=== PATIENT | male | born 2000 | race Caucasian/White ===

== ENCOUNTER 2019-10-04 20:11 | Emergency (ER) | payer OTHER, SELFPAY ==
[2019-10-04 20:12] VITALS: BP 154/58; PULSE 125; RESP 28; TEMP 37.2; O2SAT 98
[2019-10-04 20:13] VITALS: BP 154/58; PULSE 125; RESP 30; TEMP 37.2; O2SAT 99; BMI 39.2
--- NOTE | 2019-10-04 20:17 | CT_ITS ---
STUDY: CT BRAIN WITHOUT CONTRAST REASON FOR EXAM: Male, 19 years old. Seizures RADIATION DOSAGE (If Supplied By Facility): CTDIvol = ( 44.99 ) mGy, DLP = ( 812.98 ) mGycm TECHNIQUE: Transaxial CT imaging of the brain was performed without administration of intravenous contrast material. Individualized dose optimization techniques were used for this CT. COMPARISON: No relevant priors. FINDINGS: Normal soft tissue structures. Normal calvarium. Normal size ventricles and extra-axial spaces for the patient''s age. Normal white matter tracts of the cerebral hemispheres. Normal basal ganglia and thalami. Normal brainstem. Normal cerebellum. There is no intracranial hemorrhage. There are no findings of an acute ischemic infarction. Mucous retention cyst in right maxillary sinus CT/Brain/Head without Contrast IMPRESSION: Normal unenhanced CT scan of the brain. Right maxillary sinus disease Electronically Signed: Alexis Paige MD at 20:51 EST , Service support ,
--- NOTE | 2019-10-04 20:18 | ED.DCSUM_ITS ---
History of Present Illness Chief Complaint: Seizure Informant: Patient Onset: Today Context: Sudden Onset Current Severity: Mild Maximum Severity: Severe Narrative: The patient presents to the emergency department after having a witnessed seizure. The patient was in his normal state of health. Mom states that sometimes, when he wakes up, he will have some slight jerking when he comes of sleep. She states is just quick and only last 2 seconds of his upper extremities. He never has loss of consciousness. She states today, he did it again. They sat him in a chair, and then he had a generalized tonic-clonic seizure that lasted approximately 5 minutes. He did bite his tongue. He was postictal. He does not think he is ever had a full-blown seizure in the past. He is not currently on any medication. He denies any substance abuse. Prior similar symptoms: No Recent Illness/Hospitalization: No Past Medical History - Allergies and Home Meds Allergies/Adverse Reactions: Allergies No Known Allergies Allergy (Verified 05/15/15 22:39) Primary Care Physician: Joseph Bailey MD [STAFF PHYSICIAN] - Prior records reviewed: Yes Past Medical History: - - ADHD Surgical History: noncontributory Smoking Status: Never smoker Review of Systems General: Denies: Chills, Fever, Sweats Eyes: Denies: Visual changes - bilaterally, Diplopia ENT: Denies: Rhinorrhea, Sore throat Cardiovascular: Denies: Chest pain, Palpitations Respiratory: Denies: Dyspnea, Cough, Dyspnea on exertion Gastrointestinal: Denies: Abdominal pain, Nausea, Vomiting, Diarrhea, Melena, Hematochezia Genitourinary: Denies: Dysuria, Hematuria, Frequency Musculoskeletal: Denies: Back pain, Extremity Pain Skin: Denies: Rash, Wounds Neurological: Denies: Headache, Weakness, Numbness Physical Exam Vital Signs/Narrative: Vital Signs Temp Pulse Resp BP Pulse Ox 10/04/19 20:13 99.0 F 125 H 30 H 154/58 H 99 10/04/19 20:12 99.0 F 125 H 28 H 154/58 H 98 Inital Vital Signs reviewed: Yes General: Well nourished, Well developed, No Acute Distress Head: Normocephalic, Atraumatic Eyes: Perrl, EOMI ENT: Moist mucous membranes, No rhinorrhea Neck: Supple, Nontender Cardiovascular: Regular rate, Regular rhythm, No murmurs Respiratory: No distress, CTA bilaterally, Chest nontender Abdomen: Soft, Nontender, Nondistended, Normal bowel sounds Back: Nontender, Normal Inspection Extremities: Nontender, No edema Skin: Normal color, No rash Neurological: Alert, Oriented x3, Cranial nerves II-XII grossly intact, Normal Strength, Normal Sensation Psychological: Normal affect, Normal Mood Diagnostic/Tx/Re-eval Clinical Impression(s) from Imaging Studies Brain CT 10/04/19 20:17 IMPRESSION: Normal unenhanced CT scan of the brain. Right maxillary sinus disease Electronically Signed: Alexis Paige MD at 20:51 EST , Service support , Abnormal Lab Results 10/04/19 10/04/19 10/04/19 20:23 20:23 21:49 WBC 12.3 H RBC 5.36 Hgb 15.3 Hct 46.1 MCV 86.0 MCH 28.5 MCHC 33.2 RDW Std Deviation 37.8 RDW Coeff of Terry 12.1 Plt Count 403 MPV 10.1 Immature Gran % (Auto) 2.400 H Neut % (Auto) 53.8 Lymph % (Auto) 33.2 [place] % (Auto) 7.8 Eos % (Auto) 2.4 Baso % (Auto) 0.4 Absolute Neuts (auto) 6.6 Absolute Lymphs (auto) 4.07 Nucleated RBC % 0 Sodium 139 Potassium 3.6 Chloride 101 Carbon Dioxide 23.0 Anion Gap 15 BUN 11 Creatinine 1.19 Estim Creat Clear Calc 101.39 Est GFR (MDRD) Af Amer 99 Est GFR (MDRD) Non-Af 82 BUN/Creatinine Ratio 9.2 L Glucose 145 H Calcium 9.4 Total Bilirubin 0.30 AST 17 ALT 28 Alkaline Phosphatase 78 Total Protein 8.2 Albumin 3.8 Globulin 4.4 H Albumin/Globulin Ratio 0.9 Ur Drug Screen Comment - Medical Decision Making The patient presents to the emergency department after witnessed seizure. He did have tongue biting. He does have myoclonic jerks when he wakes from sleep, but has never had a full seizure. He states he has had difficult time sleeping as he is supposed to start a new job tomorrow. He is currently back to baseline. Metabolic work-up was pursued and is unremarkable. Noncontrast head CT was unremarkable. I do have some concern that the patient may have a seizure focus for the myoclonic jerking in his history. I do feel that it would be more prudent to cover him with antiepileptics to keep him from seizing while he can follow-up as an outpatient. The family is agreeable with this plan of care. He is been observed for 2 hours now with no recurrence of his seizure activity. At this point, I do feel that he is safe for outpatient follow-up. Impression 1. New onset seizure ED Disposition - Plan for ED Patient: Instructions: SEIZURE, New Onset, Unk Cause [Adult] Prescriptions: Levetiracetam [Keppra] 500 mg PO BID #60 tab Prescription Printed Referrals: Joseph Bailey MD [STAFF PHYSICIAN] - 2 Days
[2019-10-04] MEDS: 0.9% Normal Saline 1,000 ML 1000 ML IV (20:28)
[2019-10-04 20:34] LABS: Absolute Lymphocyte Count 4.07 X10^3/uL (0.83-4.51); Absolute Neutrophil Count 6.6 X10^3/uL (2.0-7.7); Basophil# 0.05 X10^3/uL; Basophil% 0.4 % (0-1); Eosinophils% 2.4 % (0-5); Hematocrit 46.1 % (40-54); Hemoglobin 15.3 g/dL (13.0-16.5); Lymphocyte # 4.07 X10^3/ul (4.0); Lymphocyte % 33.2 % (19-41); Mean Corp Hgb Conc 33.2 g/dL (32-36); Mean Corpuscular Hgb 28.5 pg (27.0-32.0); Mean Platelet Vol. 10.1 fl (6.2-12.0); Monocyte# 0.95 X10^3/uL; Monocyte% 7.8 % (0-10); NRBC Flagged by Analyzer 0 % (0-5); Neutrophil # 6.58 X10^3/uL (2.7-7.7); Neutrophil % 53.8 % (47-70); Platelet Count 403 K/mm3 (150-450); RBC Distribution Width CV 12.1 % (11.6-14.6); RBC Distribution Width SD 37.8 fl (35.1-43.9); Red Blood Count 5.36 M/mm3 (4.6-6.2); White Blood Count 12.3 K/mm3 (4.4-11.0)
[2019-10-04 21:06] LABS: ALB/GLOB Ratio 0.9 RATIO (0.9-2.4); AST(SGOT) 17 U/L (15-37); Alanine Aminotransfer ALT/SGPT 28 U/L (16-61); Albumin, Serum 3.8 g/dL (3.2-5.0); Alkaline Phosphatase 78 U/L (45-117); Anion Gap 15 (5-15); BUN 11 mg/dL (7-18); BUN/Creat Ratio 9.2 RATIO (10-20); Calcium,Total 9.4 mg/dL (8.5-10.1); Chloride 101 mmol/L (98-107); Creatinine, Serum 1.19 mg/dL (0.70-1.30); EST Glomerular Filtration Rate 82 mL/min (>60); Est Glom Filt Rate - Afr Amer 99 mL/min (>60); Estimated Creatinine Clearance 101.39 ml/min; Globulin 4.4 g/dL (2.2-4.2); Glucose 145 mg/dL (74-106); Potassium 3.6 mmol/L (3.5-5.1); Protein, Total 8.2 g/dL (6.4-8.2); Sodium Level 139 mmol/L (136-145)
[2019-10-04 21:54] LABS: Bacteria 0 SEEN /hpf (None Seen); Mucous, Urine 0 SEEN /hpf (<or=2+); Red Blood Cells-Urine 0 SEEN /hpf (0-5); Squamous Epithelial Cells - UA 0 SEEN /hpf (0-5); White Blood Cells 0 SEEN /hpf (0-5)
[2019-10-04 21:58] LABS: Color, Urine Yellow (Yellow); Glucose, Dipstick Normal (Normal); Ketone-Dipstick 5 mg/dl (Negative); Leukocyte Esterase-Dipstick Negative /ul (Negative); Nitrite-Dipstick Negative (Negative); Occult Blood-Urine 10 /ul (Negative); Protein-Dipstick 15 mg/dl (Negative); Specific Gravity, Urine 1.025 (1.002-1.030); Urine Bilirubin Dipstick Negative (Negative); Urine Clarity Clear (Clear); Urine Urobilinogen Normal (Normal)
[2019-10-04] MEDS: levETIRAcetam IV 1,000 MG/100 ML BAG 400 MG IV (22:16)
[2019-10-04 22:22] VITALS: BP 125/68; PULSE 105; RESP 18; O2SAT 96
[2019-10-04 22:23] LABS: Hyaline Cast 0-5 SEEN /lpf (0-5)
[2019-10-04 22:40] VITALS: BP 119/82; PULSE 105; RESP 18; O2SAT 98
[2019-10-04 22:43] LABS: Amphetamine Urine VISTA NEGATIVE (<1000 ng/mL); Barbiturate Urine VISTA NEGATIVE (< 200 ng/mL); Benzodiazepine Urine VISTA NEGATIVE (< 200 ng/mL); Cocaine Urine VISTA NEGATIVE (< 300 ng/mL); Ecstacy Urine VISTA NEGATIVE (< 500 ng/mL); Methadone Urine VISTA NEGATIVE (< 300 ng/mL); PCP Urine VISTA NEGATIVE (< 25 ng/mL); THC Urine VISTA NEGATIVE (< 50 ng/mL); Vista UDS pH Range 5
== END 2019-10-04 22:41 | disposition home or self-care (01) ==
PROVIDERS: Emergency Provider Emergency Medicine; Family Provider Family Medicine; PCP Family Medicine
DX: G40.909 Epilepsy, unspecified, not intractable, without status epilepticus (principal); J32.0 Chronic maxillary sinusitis; F90.9 Attention-deficit hyperactivity disorder, unspecified type
CPT/HCPCS: 70450; 80053; 80307; 81001; 85025; 96361; 96365; 96366; 99285; J7030; J7050; A4216

== ENCOUNTER 2021-11-15 10:14 | Emergency (ER) | payer OTHER, SELFPAY ==
[2021-11-15 10:18] VITALS: BP 160/74; PULSE 129; RESP 19; TEMP 36.8; O2SAT 94; BMI 38.0
--- NOTE | 2021-11-15 10:24 | CT_ITS ---
STUDY: CT BRAIN WITHOUT CONTRAST REASON FOR EXAM: Male, 21 years old. Seizure RADIATION DOSAGE (If Supplied By Facility): CTDIvol = ( 44.99 ) mGy, DLP = ( 779.24 ) mGycm TECHNIQUE: Transaxial CT imaging of the brain was performed without administration of intravenous contrast material. Individualized dose optimization techniques were used for this CT. COMPARISON: Comparison is made with prior study dated 10/04/2019. FINDINGS: Normal soft tissue structures. Normal calvarium. Normal size ventricles and extra-axial spaces for the patient''s age. Normal white matter tracts of the cerebral hemispheres. Normal basal ganglia and thalami. Normal brainstem. Normal cerebellum. There is no intracranial hemorrhage. There are no findings of an acute ischemic infarction. There is a 1.8 cm polyp or retention cyst at the base of the right maxillary sinus. CT/Brain/Head without Contrast IMPRESSION: No acute abnormality is seen. Stable right maxillary polyp or retention cyst. Electronically Signed: Elijah Kilpatrick MD at 11:19 EST , Service support ,
--- NOTE | 2021-11-15 10:26 | EDS_ITS ---
HPI History of Present Illness Chief Complaint: Seizure Informant: patient and EMS Onset/Context/Timing Onset: Today Context: Sudden Onset Timing: Lasts (Approximately 10 minutes) Quality: Tonic-clonic Location: Generalized Worsened by: Nothing Relieved by: Nothing Narrative Narrative: Patient notes with a seizure that occurred today. Patient states he has a history of seizures. Patient states that he takes Keppra for his seizures. Patient does not remember any events around the seizure. EMS reports that the family who witnessed the seizure states that it lasted approximately 10 minutes. They report that it was generalized tonic-clonic seizure. Patient states he bit his tongue. Patient denies any incontinence of urine or stool. EMS reports that the patient was somewhat anxious when he started to come out of his postictal state. Prior similar symptoms: Yes PFSH PFSH Medical History (Updated 11/15/21 @ 11:[address] Greyson Farley DO) Seizures Home Medications levetiracetam 500 mg PO BID #60 tab 10/04/19 [Rx Last Taken Unknown] Allergy/AdvReac Type Severity Reaction Status Date / Time tree nuts Allergy Mild Other Uncoded 11/15/21 10:15 Surgical History (Updated 11/15/21 @ 10:[address] Greyson Farley DO) Hx of tympanostomy tubes Surgical History no surgical history Social History Smoking Status: Never smoker ROS ROS ED Constitutional Constitutional ED: Denies chills or fever(s) Eyes Eyes: Denies blurry vision or change in vision ENT ENT ED: Denies rhinorrhea or sore throat Cardiovascular Cardiovascular: Denies chest pain or palpitations Respiratory/Chest Respiratory/Chest: Denies cough or dyspnea Gastrointestinal Gastrointestinal: Denies nausea or vomiting Genitourinary Genitourinary ED: Denies dysuria or hematuria Musculoskeletal Musculoskeletal: Denies back pain or neck pain Integumentary Denies abscess or rash Neurologic Neurologic: Denies headache(s) or weakness Allergic/Immunologic Allergic/Immunologic ED: Denies mouth swelling or urticaria EXAM Physical Exam Const Vital Signs: 11/15/21 10:18 Temperature 98.2 F Temperature Source Oral Pulse Rate 129 H Respiratory Rate 19 H Blood Pressure 160/74 H Blood Pressure Mean 102 Pulse Ox 94 Oxygen Delivery Method Room Air Positive well nourished and well developed General Appearance ED: well developed HEENT Reports moist mucous membranes Neck supple and no JVD Resp normal respiratory effort and clear to auscultation bilaterally Cardio regular rate, regular rhythm and no murmurs GI normal to inspection, nondistended, normoactive bowel sounds and non-tender Palpation: soft Extremity normal to inspection General Extremety ED: Negative for edema or tenderness General Extremity: Negative for edema Neuro oriented x3, CN's II-XII intact bilaterally and no sensory deficits noted Sensorium / Orientation: alert Motor Exam: strength 5/5 throughout Psych mental status grossly normal Skin no rashes or lesions noted MDM MDM MDM Narrative Medical decision making narrative: Patient was placed on continuous cardiac and pulse oximeter monitors. CT scan of the brain was obtained. There is no acute intracranial abnormality. This was interpreted by the radiologist and reviewed by myself. CBC and comprehensive metabolic profile were obtained and were within normal limits. Patient had no further seizure activity here in the emergency department. Patient was advised of his findings. Patient was instructed to follow-up with his primary care physician in 3 to 5 days. Patient was instructed to continue his Keppra as prescribed. Patient understood and was agreeable with the plan. All questions were answered. Lab Data Attestation: I reviewed the patient's lab results. Labs: Laboratory Results - last 24 hr 11/15/21 11/15/21 10:30 10:30 WBC 8.2 RBC 5.46 Hgb 15.7 Hct 44.6 MCV 81.7 MCH 28.8 MCHC 35.2 RDW Std Deviation 36.3 RDW Coeff of Terry 12.2 Plt Count 386 MPV 10.3 Immature Gran % (Auto) 0.500 Neut % (Auto) 62.6 Lymph % (Auto) 28.4 [place] % (Auto) 7.4 Eos % (Auto) 0.6 Baso % (Auto) 0.5 Absolute Neuts (auto) 5.1 Absolute Lymphs (auto) 2.33 Nucleated RBC % 0 Sodium 135 L Potassium 4.2 Chloride 102 Carbon Dioxide 23.0 Anion Gap 10 BUN 14 Creatinine 1.19 Estim Creat Clear Calc 96.54 Est GFR (MDRD) Af Amer 97 Est GFR (MDRD) Non-Af 80 BUN/Creatinine Ratio 11.8 Glucose 153 H Calcium 9.6 Total Bilirubin 0.40 AST 17 ALT 25 Alkaline Phosphatase 71 Total Protein 8.2 Albumin 3.8 Globulin 4.4 H Albumin/Globulin Ratio 0.9 Radiography Diagnostic Testing: Clinical Impression(s) from Imaging Studies Brain CT 11/15/21 10:24 IMPRESSION: No acute abnormality is seen. Stable right maxillary polyp or retention cyst. Electronically Signed: Elijah Kilpatrick MD at 11:19 EST , Service support , Discharge Plan Triage Chief Complaint: Seizure ED Provider: Greyson Farley Dx/Rx/DC Orders Clinical Impression: Seizure Instructions: ED Seizure, Recurrent (Adult) Prescriptions: No Action levetiracetam 500 MG tablet 500 mg PO BID Qty: 60 RF: 0 Primary Care Provider: Delonte Segura Referrals: Delonte Segura MD [Primary Care Provider] - 3-5 Days Disposition Disposition: Home, Self Care
[2021-11-15 10:45] LABS: Absolute Lymphocyte Count 2.33 X10^3/uL (0.83-4.51); Absolute Neutrophil Count 5.1 X10^3/uL (2.0-7.7); Basophil# 0.04 X10^3/uL; Basophil% 0.5 % (0-1); Eosinophil# 0.05 X10^3/uL; Eosinophils% 0.6 % (0-5); Hematocrit 44.6 % (40-54); Hemoglobin 15.7 g/dL (13.0-16.5); Lymphocyte # 2.33 X10^3/ul (0.83-4.51); Lymphocyte % 28.4 % (19-41); Mean Corp Hgb Conc 35.2 g/dL (32-36); Mean Corpuscular Hgb 28.8 pg (27.0-32.0); Mean Corpuscular Volume 81.7 fL (80-94); Mean Platelet Vol. 10.3 fl (6.2-12.0); Monocyte# 0.61 X10^3/uL; Monocyte% 7.4 % (0-10); NRBC Flagged by Analyzer 0 % (0-5); Neutrophil # 5.14 X10^3/uL (2.7-7.7); Neutrophil % 62.6 % (47-70); Platelet Count 386 K/mm3 (150-450); RBC Distribution Width CV 12.2 % (11.6-14.6); RBC Distribution Width SD 36.3 fl (35.1-43.9); Red Blood Count 5.46 M/mm3 (4.6-6.2); White Blood Count 8.2 K/mm3 (4.4-11.0)
[2021-11-15 11:03] LABS: ALB/GLOB Ratio 0.9 RATIO (0.9-2.4); AST(SGOT) 17 U/L (15-37); Alanine Aminotransfer ALT/SGPT 25 U/L (16-61); Albumin, Serum 3.8 g/dL (3.2-5.0); Alkaline Phosphatase 71 U/L (45-117); Anion Gap 10 (5-15); BUN 14 mg/dL (7-18); BUN/Creat Ratio 11.8 RATIO (10-20); Calcium,Total 9.6 mg/dL (8.5-10.1); Chloride 102 mmol/L (98-107); Creatinine, Serum 1.19 mg/dL (0.70-1.30); EST Glomerular Filtration Rate 80 mL/min (>60); Est Glom Filt Rate - Afr Amer 97 mL/min (>60); Estimated Creatinine Clearance 96.54 ml/min; Globulin 4.4 g/dL (2.2-4.2); Glucose 153 mg/dL (74-106); Potassium 4.2 mmol/L (3.5-5.1); Protein, Total 8.2 g/dL (6.4-8.2); Sodium Level 135 mmol/L (136-145)
[2021-11-15 12:12] VITALS: BP 118/69; PULSE 98; RESP 19; O2SAT 95
== END 2021-11-15 12:13 | disposition home or self-care (01) ==
PROVIDERS: Emergency Provider Emergency Medicine; PCP Family Medicine; Visit Provider Emergency Medicine
DX: G40.309 Generalized idiopathic epilepsy and epileptic syndromes, not intractable, without status epilepticus (principal)
CPT/HCPCS: 70450; 80053; 85025; 99285; A4216

== ENCOUNTER 2023-07-26 09:35 | Emergency (ER) | payer OTHER, SELFPAY ==
[2023-07-26 09:36] VITALS: BP 143/56; PULSE 132; RESP 20; TEMP 37.2; O2SAT 97; BMI 40.6
--- NOTE | 2023-07-26 09:37 | ED.RN ---
pt requesting that staff call his work to let them know he will not be there today. with permission given from pt, [facility] called and updated regarding pt's status
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
[2023-07-26 12:06] VITALS: BP 120/90; PULSE 98; RESP 18; O2SAT 97
[2023-07-26 12:07] VITALS: BP 120/90; PULSE 98; RESP 18; O2SAT 97
== END 2023-07-26 12:11 | disposition home or self-care (01) ==
PROVIDERS: Emergency Provider Emergency Medicine; PCP Family Medicine; Visit Provider Emergency Medicine
DX: G40.89 Other seizures (principal); S60.221A Contusion of right hand, initial encounter; Z79.899 Other long term (current) drug therapy; V89.0XXA Person injured in unspecified motor-vehicle accident, nontraffic, initial encounter; Y92.019 Unspecified place in single-family (private) house as the place of occurrence of the external cause
CPT/HCPCS: 73130; 99285; A4216

== ENCOUNTER 2025-07-05 07:28 | Emergency (ER) | payer BC, SELFPAY ==
[2025-07-05] VITALS (7 sets, daily range): BP systolic 135–180; BP diastolic 65–98; PULSE 99–143; RESP 18–26; TEMP 36.6–37; O2SAT 96–99; BMI 42.3
--- NOTE | 2025-07-05 07:50 | EX.ED.DYSGE1 ---
HPI History of Present Illness Chief Complaint: Seizure Informant: patient Onset/Context/Timing Onset: Today Context: Sudden Onset Timing: Intermittent Current Severity: Gone Maximum Severity: Moderate Narrative Narrative: 24-year-old male 6-year history of seizure disorder for which she takes Keppra 750 twice a day. Says he has not recently missed any dosages. He was at work today when he had a seizure. Denies any injuries. Denies any recent illness. Denies any headache. Last seizure was more than a month ago. He sees a neurologist at [facility]. Prior similar symptoms: Yes Recent Illness/Hospitalization: No [facility] Medical History Seizures Home Medications ?Medication ?Instructions ?Recorded ?Last Taken ?Type levetiracetam 500 mg tablet 750 mg PO BID 07/26/23 Unknown History Allergy/AdvReac Type Severity Reaction Status Date / Time tree nut Allergy Mild T[place] Verified 07/26/23 09:36 IN MOUTH Surgical History Hx of tympanostomy tubes Social History Smoking Status: Never smoker ROS ROS ED ROS Narrative Denies recent illness. Seizure today. Constitutional Constitutional ED: Denies chills or fever(s) Eyes Eyes: Denies blurry vision ENT ENT ED: Denies ear pain Cardiovascular Cardiovascular: Denies chest pain Respiratory/Chest Respiratory/Chest: Denies cough or dyspnea Gastrointestinal Gastrointestinal: Denies abdominal pain Genitourinary Genitourinary ED: Denies dysuria or hematuria Musculoskeletal Musculoskeletal: Denies arthralgias Integumentary Denies abscess Neurologic Neurologic: Denies headache(s) Psychiatric Psychiatric: Denies anxiety or depression Endocrine Endocrinology: Denies cold intolerance Hematologic/Lymphatic Hematologic/Lymphatic: Reports none Allergic/Immunologic Allergic/Immunologic ED: Denies mouth swelling, tongue swelling or urticaria EXAM Physical Exam Narrative Exam Narrative: Well-appearing 24-year-old male. Vital signs stable afebrile is tachycardic currently 120. He is in no acute distress. He is afebrile. His pulse ox is 97% on room air. He is awake alert talking. H EENT exam pupils round reactive light. No trauma to his face or scalp nontender. Moist mutes membranes. I do not see any lacerations or bite solis on his tongue. Speaking normally. Neck nontender. No lymphadenopathy. No meningismus. Back nontender. Lungs clear to auscultation bilaterally. Heart tachycardic 120 no murmur. Chest wall ribs nontender. Abdomen soft nontender. No peritoneal signs. Patient moving all 4 extremities. 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 Dorsi plantarflexion intact. Neurologically is awake and alert. Answering questions following commands. NIH 0. Bilateral real estate sales supervisor strength. Bilateral dorsi plantarflexion. Very benign exam. Const Vital Signs: 07/05/25 07:28 07/05/25 07:36 07/05/25 07:45 Temperature 98 F Temperature Source Oral Pulse Rate 138 H 143 H 125 H Respiratory Rate 18 23 H 20 H Blood Pressure 180/83 H 154/98 H Blood Pressure Mean 115 110 Pulse Ox 97 99 98 Oxygen Delivery Method Room Air 07/05/25 08:00 07/05/25 08:15 07/05/25 08:30 Temperature Temperature Source Pulse Rate 118 H 107 H 105 H Respiratory Rate 26 H 23 H 21 H Blood Pressure 138/65 H 135/90 H 144/75 H Blood Pressure Mean 86 104 92 Pulse Ox 96 96 97 Oxygen Delivery Method Positive well nourished and well developed; Negative for cachectic, contractures or unkempt General Appearance ED: well developed; Negative for unkempt, cachectic, contractures, cyanotic, diaphoretic or pallor Nutritional Appearance: Negative for cachectic HEENT Reports moist mucous membranes Negative for trauma or tenderness Eyes PERRL and EOMs intact bilaterally General Eye ED: Negative for pale conjunctiva or scleral icterus Neck no lymphadenopathy, supple and no JVD Chest Wall inspection of chest normal and palpation of chest normal Resp normal respiratory effort and clear to auscultation bilaterally Cardio regular rhythm, S1 normal heart sound, S2 normal heart sound and no murmurs; Negative for regular rate Rate: tachycardic Rhythm: Negative for abnormal rhythm GI normal to inspection, nondistended, normoactive bowel sounds, non-tender, non-distended and no masses Auscultation: normoactive bowel sounds Palpation: soft; Negative for tender, guarding or rebound tenderness present Back/Spine no CVA tenderness General Back: Negative for CVA tenderness Cervical Spine: Negative for cervical spine tenderness Thoracic Spine / Upper Back: Negative for thoracic spinal tenderness or paraspinal muscle tenderness Extremity normal to inspection General Extremety ED: Negative for edema or tenderness General Extremity: Negative for edema Neuro oriented x3, CN's II-XII intact bilaterally and no sensory deficits noted Sensorium / Orientation: alert Motor Exam: strength 5/5 throughout; Negative for general weakness or strength abnormal Psych mental status grossly normal Appearance: Negative for unkempt Skin no rashes or lesions noted, no wounds and skin turgor normal General Skin Exam: Negative for jaundice or pallor Lesions: No lesion noted Rashes: No rashes noted Trauma: Negative for abrasion Wounds: Negative for wounds noted MDM MDM MDM Narrative Medical decision making narrative: 24-year-old male known history of seizure disorder recently has not missed his medications. I think there is something on the triage note saying he missed his dose this morning he denies that. Said he has not missed a dose of medication for weeks or longer. Last seizure was a month ago. Had reportedly a tonic-clonic seizure today. Currently is fine. No recent head injury or illness. I do not think that patient needs any labs or imaging he has had 2 prior CAT scans here that I see on old records and prior labs. His exam is benign. He will be given an extra dose of Keppra and watch. His mom is reportedly coming in. Repeat exam patient is doing well at 8:40 AM. He ambulated to bathroom without difficulty. He wanted something for lower back discomfort he was given Motrin. Repeat back exam is unchanged there is no bruising. We discussed x-ray he did not want any done at this time and clinically I do not think he needs it. His mom is currently present in the room. She is in a continuous pickling line pickler his car from work. Patient will be discharged to home. He was instructed not to drive. Follow-up with his neurologist. History & Record Review Discussion w/independent historian: Patient Additional record(s) reviewed:: Prior inpatient record, Prior outpatient record and Prior ED visit Discharge Plan Triage Chief Complaint: Seizure ED Provider: Mitch Martinez Dx/Rx/DC Orders Clinical Impression: Recurrent seizures Instructions: ED Seizure, Recurrent (Adult) Prescriptions: No Action levetiracetam 500 MG tablet 750 mg PO BID Primary Care Provider: Delonte Segura Referrals: Delonte Segura MD [Primary Care Provider] - As Needed Activity Restrictions/Additional Instructions: Continue taking your Keppra as prescribed. Follow-up with your neurologist to get cleared for driving. Print Language: Mohawk Disposition Disposition: Home, Self Care
== END 2025-07-05 08:51 | disposition home or self-care (01) ==
PROVIDERS: Emergency Provider Emergency Medicine; PCP Family Medicine; Visit Provider Emergency Medicine
DX: G40.909 Epilepsy, unspecified, not intractable, without status epilepticus (principal); R29.700 NIHSS score 0; Z79.899 Other long term (current) drug therapy
CPT/HCPCS: 99285